=== PATIENT | male | born 1960 | race African-American/Black ===

== ENCOUNTER 2021-09-09 07:13 | Emergency (ER) | payer OTHER ==
[~2021-09-09] VITALS: Ht 180.3 cm; Wt 78.0 kg
[2021-09-09 07:21] VITALS: BP 144/76
[2021-09-09] MEDS ORDERED: BACITRACIN/POLYMYXIN B SULFATE OINT 15GM TOP ONE (07:45)
[2021-09-09] MEDS ORDERED: TETANUS, DIPHTHERIA, PERTUSSIS VAC/PF 0.5ML (>10YR OLD) IM ONE (07:45)
== END 2021-09-09 08:02 | disposition home or self-care (01) ==
LOC: ER 07:13
DX: S50.811A Abrasion of right forearm, initial encounter (principal); Z98.890 Other specified postprocedural states; Y08.89XA Assault by other specified means, initial encounter; Y93.89 Activity, other specified; Y92.238 Other place in hospital as the place of occurrence of the external cause
CPT/HCPCS: 90471; 90715; 99283

== ENCOUNTER 2024-03-03 07:19 | Emergency (ER) | payer MEDICARE, OTHER ==
[~2024-03-03] VITALS: Ht 180.3 cm; Wt 71.9 kg
[2024-03-03 07:30] VITALS: O2SAT 100
[2024-03-03] MEDS ORDERED: NAPR500T7 MT (08:07)
[2024-03-03] MEDS ORDERED: LIDO700A30 TP (08:08)
[2024-03-03] MEDS: DEXAMETHASONE 4MG/ML 1ML VIAL IM ONE (08:15)
[2024-03-03] MEDS: KETOROLAC 30MG/ML VIAL IM ONE (08:15)
[2024-03-03] MEDS ORDERED: METH-653 MT (08:21)
[2024-03-03 09:18] VITALS: BP 136/78; PULSE 81; RESP 18; TEMP 98.6
== END 2024-03-03 09:33 | disposition home or self-care (01) ==
LOC: ER 07:19
DX: G89.29 Other chronic pain (principal); M54.50 Low back pain, unspecified; D69.3 Immune thrombocytopenic purpura; Z98.890 Other specified postprocedural states
CPT/HCPCS: 99284; 96372; J1100; J1885